=== PATIENT | female | born 1985 | race Caucasian/White ===

== ENCOUNTER 2016-10-12 19:46 | Emergency (ER) | payer SELFPAY ==
--- NOTE | 2016-10-12 20:17 | NUR ---
PATIENT LEFT WITHOUT BEING SEEN BY DR. IRELAND . NO FURTHER CARE PROVIDED FOR PATIENT.
== END 2016-10-12 20:17 | disposition left against medical advice (07) ==
LOC: MED 19:46
DX: M79.606 Pain in leg, unspecified (principal); Z53.21 Procedure and treatment not carried out due to patient leaving prior to being seen by health care provider

== ENCOUNTER 2016-11-05 13:25 | Inpatient (IN) | payer MEDICAID ==
[~2016-11-05] VITALS: Ht 160 cm; Wt 59.0 kg
--- NOTE | 2016-11-05 13:25 | NUR ---
Patient was BIBA at this time.
[2016-11-05 13:38] VITALS: BP 105/66
--- NOTE | 2016-11-05 14:30 | NUR ---
Patient to bed 06.
--- NOTE | 2016-11-05 14:30 | NUR ---
PT SWABBED FOR FLU. PT JEAN CLAUDE WELL. 20G IV TO LAC. BLOOD DRAWN FOR LAB.
[2016-11-05] MEDS ORDERED: NACL 0.9% 500 ML IV SCH (14:33)
--- NOTE | 2016-11-05 14:35 | NUR ---
31/ BIBA WITH MOM C/O GENERALIZED BODY ACHES AND SURESH SINCE WEDNESDAY. PT STATES SHE WAS RECENTLY TREATED FOR TOOTH ABSCESS W/AMOXICILLIN AND HAS SINCE DEVELOPED BODY ACHES AND PAINS. HX CVA W/LEFT ARM WEAKNESS 2010, KIDNEY STONES/SURGERY 2013. HX BLOOD CLOTS. PT ALSO C/O NECK PAIN RADIATING TO BACK, FEBRILE, AND CHILLS. PT PLACED ON MONITOR. EKG DONE AT BEDSIDE. FEVER PROTOCOL PER SEP. ER MADE AWARE.
[2016-11-05] MEDS ORDERED: ACETAMINOPHEN EXTRA STRENGTH 500 MG TAB ONE (14:56)
--- NOTE | 2016-11-05 14:56 | NUR ---
KEENA Peña evaluating patient at bedside.
[2016-11-05] MEDS ORDERED: ACETAMINOPHEN EXTRA STRENGTH 500 MG TAB PO ONE (15:10)
[2016-11-05] MEDS ORDERED: fentaNYL 0.05 MG/ML VIAL IVP ONE ×2 (15:35→15:55)
[2016-11-05] MEDS ORDERED: ONDANSETRON 4 MG/2 ML VIAL IVP ONE (15:35)
--- NOTE | 2016-11-05 15:42 | NUR ---
PER LAB, LACTIC ACID 3.8. Made this known to Dr. Alonso.
[2016-11-05] MEDS ORDERED: VANCOMYCIN 1,000 MG in DEXTROSE 5% 250 ML IV ONE (15:45)
[2016-11-05] MEDS ORDERED: cefTRIAXone 2,000 MG in DEXTROSE 5% 100 ML IV ONE (15:45)
[2016-11-05] MEDS ORDERED: DEXAMETHASONE 10 MG/ML VIAL IVP ONE (15:45)
--- NOTE | 2016-11-05 15:45 | NUR ---
Patient to CT via rmission hospital.
--- NOTE | 2016-11-05 15:52 | NUR ---
Patient back from CT via wheelchair per tech.
--- NOTE | 2016-11-05 15:55 | NUR ---
Dr. Alonso at bedside.
[2016-11-05] MEDS ORDERED: VANCOMYCIN 1,000 MG VIAL ONE (15:56)
[2016-11-05] MEDS ORDERED: cefTRIAXone 2,000 MG VIAL ONE (15:56)
--- NOTE | 2016-11-05 16:25 | NUR ---
DR. MORELOS FINISHED WITH LP AT BEDSIDE.
--- NOTE | 2016-11-05 16:40 | NUR ---
CALLED TO GIVE REPORT TO LORRAINE. STS WILL CALL BACK. WILL F/U IN 10MINS.
[2016-11-05] MEDS ORDERED: NACL 0.9% 1,000 ML IV SCH (16:46)
[2016-11-05] MEDS ORDERED: HYDROcodone/APAP 5/325 MG 1 TAB TAB PO PRN (16:50)
[2016-11-05] MEDS ORDERED: ACETAMINOPHEN 325 MG TAB PO PRN (16:50)
[2016-11-05] MEDS ORDERED: ONDANSETRON 4 MG/2 ML VIAL IVP PRN (16:50)
[2016-11-05 17:45] VITALS: BP 100/54
--- NOTE | 2016-11-05 17:45 | NUR ---
PATIENT ARRIVED FROM ER VIA GURNEY WITH DX OF POSSIBLE MENINGITIS. PATIENT AWAKE,ALERT AND ORIENTED. PATIENT REPORTS OF GENERALIZED PAIN BUT WAS MEDICATED PRIOR TO BEING TRANSFERRED. IV LINE NOTED TO THE LEFT AC WITH IVF INFUSING WELL. PATIENT PLACED ON TELE MONITORING. BED LOWERED WITH CALL LIGHT WITHIN REACH. WILL CONTINUE TO MONITOR
--- NOTE | 2016-11-05 19:20 | NUR ---
RECEIVED REPORT FROM LORETTA RAMIREZ/SARAH AT BEDSIDE. INITIAL ASSESSMENT COMPETED. PT AAOX4. PT HAS CCDS ON. PT HAS IV TO LEFT AC G 20; ASYMPTOMATIC, PATENT AND INTACT. ORIENTED PT TO ROOM AND SURROUNDINGS AND USE OF CALL LIGHT. EXPLAINED PLAN OF CARE TO PT AND SHE VERBALIZES UNDERSTANDING. CALL LIGHT WITHIN REACH.
--- NOTE | 2016-11-05 19:20 | NUR ---
PT REPORT GIVEN AT BEDSIDE TO NIGHT NURSE. PT ENDORSED IN STABLE CONDITION.
[2016-11-05 20:00] VITALS: BP 102/68
[2016-11-05] MEDS: MORPHINE SULFATE 2 MG/ML SYR IVP PRN (20:32)
--- NOTE | 2016-11-05 20:39 | NUR ---
PT MEDICATED FOR GENERALIZED PAIN 03/11. VS STABLE, WILL CONTINUE TO MONITOR PT.
--- NOTE | 2016-11-05 22:30 | NUR ---
PT'S POTASSIUM 3.2. DR. CHICAS WHO IS COVERING FOR DR. NATIVIDAD HERNANDEZ. WILL FOLLOW UP ON ORDERS.
[2016-11-05] MEDS ORDERED: POTASSIUM CHLORIDE 10 MEQ TABER PO SCH (23:30)
--- NOTE | 2016-11-05 23:43 | NUR ---
POTASSIUM GIVEN TO PT ORDERED. PT'S VS STABLE, PT RESTING IN BED. CALL LIGHT WITHIN REACH.
[2016-11-06] VITALS: BP 98/69
--- NOTE | 2016-11-06 01:05 | NUR ---
IV PUMP ALARMING, CHECKED IV PUMP, FLUSHED AND INFUSING FLUIDS WELL NOW. WILL CONTINUE TO MONITOR PT.
[2016-11-06 04:00] VITALS: BP 101/71
--- NOTE | 2016-11-06 04:15 | NUR ---
PT'S VS STABLE. NO SIGNS OF DISTRESS OR DISCOMFORT. WILL CONTINUE TO MONITOR PT.
--- NOTE | 2016-11-06 07:15 | NUR ---
ENDORSED PLAN OF CARE TO JOCELYN FOR CONTINUITY OF CARE. PT IN STABLE CONDITION.
--- NOTE | 2016-11-06 07:20 | NUR ---
RECEIVED REPORT FROM LORETTA MERCER. PT IS RESTING IN BED, A/OX4, IV IS ON THE LT AC, PATENT, INTACT, INFUSING WELL, SKIN IS INTACT, PT IS ON 2L O2 NC, NO S/S OF RESPIRATORY DISTRESS OR DISCOMFORT NOTED, FALL/SAFETY PRECAUTIONS ARE IN PLACE, DISCUSSED PLAN OF CARE WITH PT, PT VERBALIZED UNDERSTANDING, CALL LIGHT IS WITHIN REACH, WILL CONTINUE TO MONITOR.
[2016-11-06 08:00] VITALS: BP 94/50
[2016-11-06] MEDS: cefTRIAXone 2,000 MG in DEXTROSE 5% 100 ML IV SCH (08:15)
[2016-11-06] MEDS ORDERED: APAP/BUTAL/CAFF 325/50/40 MG 1 TAB PO PRN (08:50)
[2016-11-06] MEDS ORDERED: APAP/BUTAL/CAFF 325/50/40 MG 1 TAB PO SCH (09:00)
[2016-11-06] MEDS ORDERED: COUMADIN5 MG PO (09:00)
--- NOTE | 2016-11-06 09:00 | NUR ---
DUE MEDS GIVEN, PT SITTING IN BED, IS AT BEDSIDE.
--- NOTE | 2016-11-06 11:03 | NUR ---
REGISTERED DIETICIAN IS AT BEDSIDE.
[2016-11-06 12:00] VITALS: BP 97/61
[2016-11-06] MEDS: ACYCLOVIR 500 MG in NACL 0.9% 100 ML IV SCH ×2 (13:19→20:35)
--- NOTE | 2016-11-06 13:30 | NUR ---
PT SLEEPING IN BED AT THIS TIME.
--- NOTE | 2016-11-06 15:30 | NUR ---
PT RESTING IN BED WATCHING TV. CALL LIGHT WITHIN REACH WILL CONTINUE TO MONITOR.
[2016-11-06 16:00] VITALS: BP 90/49
[2016-11-06] MEDS ORDERED: BACLOFEN 10 MG TAB PO PRN (16:05)
[2016-11-06] MEDS ORDERED: SUMAtriptan 50 MG TAB PO SCH (16:15)
[2016-11-06] MEDS: NACL 0.9% 1,000 ML IV SCH (17:13)
[2016-11-06] MEDS: MORPHINE SULFATE 2 MG/ML SYR IVP PRN (17:38)
[2016-11-06] MEDS ORDERED: HYDROmorphone 1 MG/ML AMP IVP PRN (18:55)
--- NOTE | 2016-11-06 19:05 | NUR ---
RECEIVED REPORT FROM LORETTA BANKS AT BEDSIDE. INITIAL ASSESSMENT COMPETED. PT AAOX4. VS ARE STABLE, PT STABLE. PT HAS CCDS ON. PT HAS IV TO LEFT AC G 20; ASYMPTOMATIC, PATENT AND INTACT. ORIENTED PT TO ROOM AND SURROUNDINGS AND USE OF CALL LIGHT. EXPLAINED PLAN OF CARE TO PT AND SHE VERBALIZES UNDERSTANDING. CALL LIGHT WITHIN REACH. Addendum: 11/06/16 at 2346 by Aisha Mccarthy RN PT ON 02 2L NASAL CANULA; SATURATION 99%.
--- NOTE | 2016-11-06 19:15 | NUR ---
ENDORSED PT TO LORETTA MERCER. FOR CONTINUITY OF CARE, PT STABLE AT THIS TIME.
[2016-11-06 20:00] VITALS: BP 105/64
--- NOTE | 2016-11-06 20:31 | NUR ---
PT COMPLAINING OF BACK PAIN 03/11. PT REQUESTING DILAUDID. VS STABLE, WILL MEDICATE ORDERED.
--- NOTE | 2016-11-06 20:43 | NUR ---
PT MEDICATED FOR PAIN AND 2100 ZOVIRAX INFUSING NOW. CALL LIGHT WITHIN REACH.
--- NOTE | 2016-11-06 22:38 | NUR ---
PT REQUESTED ORANGE JUICE, WILL PROVIDE PT WITH JUICE. CALL LIGHT WITHIN REACH.
[2016-11-07] VITALS: BP 111/68
--- NOTE | 2016-11-07 00:52 | NUR ---
CHECKED ON PT. PT SLEEPING COMFORTABLY AT THIS TIME. CALL LIGHT WITHIN REACH.
--- NOTE | 2016-11-07 02:37 | NUR ---
PT REQUESTED TO HAVE IV REMOVED SO SHE COULD AMBULATE TO THE RESTROOM. PT BACK IN BED RESTING COMFORTABLY NOW. WILL CONTINUE TO MONITOR PT.
[2016-11-07] MEDS: NACL 0.9% 1,000 ML IV SCH (03:53)
[2016-11-07 04:00] VITALS: BP 113/69
[2016-11-07] MEDS: ACYCLOVIR 500 MG in NACL 0.9% 100 ML IV SCH (04:55)
--- NOTE | 2016-11-07 05:00 | NUR ---
PT COMPLAINING OF PAIN ON IV SITE. DISCONTINUED IV WITH TIP INTACT. NEW IV STARTED ON LEFT FOREARM G 20 INFUSING FLUIDS WELL. CALL LIGHT WITHIN REACH.
--- NOTE | 2016-11-07 07:00 | NUR ---
ENDORSED PLAN OF CARE TO JOCELYN FOR CONTINUITY OF CARE. PT IN STABLE CONDITION.
--- NOTE | 2016-11-07 07:05 | NUR ---
RECEIVED REPORT FROM LORETTA MERCER. PT IS ASLEEP BUT EASILY AWAKEN, A/OX4, AMBULATORY, IV IS ON THE LT WRIST, PATENT, INTACT, INFUSING WELL, SKIN IS INTACT, NO S/S OF RESPIRATORY DISTRESS OR DISCOMFORT NOTED, SAFETY/FALL/SEIZURE PRECAUTIONS ARE IN PLACE, DISCUSSED PLAN OF CARE WITH PT, PT VERBALIZED UNDERSTANDING, CALL LIGHT IS WITHIN REACH, WILL CONTINUE TO MONITOR.
--- NOTE | 2016-11-07 07:20 | NUR ---
PATIENT HAS BEEN SCREENED AND CATEGORIZED LOW NUTRITION RISK. PATIENT WILL BE SEEN WITHIN 7 DAYS OF ADMISSION. 11/11/16 FARTUN POPE MS, RDN
[2016-11-07 08:00] VITALS: BP 97/65
[2016-11-07] MEDS: cefTRIAXone 2,000 MG in DEXTROSE 5% 100 ML IV SCH (09:10)
--- NOTE | 2016-11-07 09:10 | NUR ---
DUE MEDICATION GIVEN, PT IS SLEEPING AT THIS TIME, CALL LIGHT WITHIN REACH, WILL CONTINUE TO MONITOR.
[2016-11-07] MEDS ORDERED: MOTRIN600 M1 PO (10:24)
[2016-11-07] MEDS ORDERED: BACLOFEN10 M1 PO (10:24)
--- NOTE | 2016-11-07 11:00 | NUR ---
PT SITTING IN BED, INFORMED THE PT THE DOCTOR HAD ORDERED HER DISCHARGE. PT VERBALIZED UNDERSTANDING AND AGREED TO DISCHARGE.
--- NOTE | 2016-11-07 13:10 | NUR ---
PT DISCHARGE INSTRUCTIONS/PACKET GIVEN, ID WRIST BAND REMOVED, IV CATHETER REMOVED, IV CATHETER TIP INTACT, PT STABLE UPON DISCHARGE.
== END 2016-11-07 13:10 | disposition home or self-care (01) | DRG 48 ==
LOC: MED 13:25 → MTU 16:41
PROVIDERS: ADMIT Family Medicine; ATTEND Family Medicine
PROC: 009U3ZX Drainage of Spinal Canal, Percutaneous Approach, Diagnostic (ICD-10-PCS; principal; 2016-11-05)
DX: G90.9 Disorder of the autonomic nervous system, unspecified (principal); E83.51 Hypocalcemia; G44.209 Tension-type headache, unspecified, not intractable; E02 Subclinical iodine-deficiency hypothyroidism; E86.0 Dehydration; H53.149 Visual discomfort, unspecified; E87.6 Hypokalemia; Z86.73 Personal history of transient ischemic attack (TIA), and cerebral infarction without residual deficits; Z90.49 Acquired absence of other specified parts of digestive tract; Z79.899 Other long term (current) drug therapy; Z56.0 Unemployment, unspecified; Z86.718 Personal history of other venous thrombosis and embolism

== ENCOUNTER 2017-05-10 15:58 | Emergency (ER) | payer MEDICAID ==
[~2017-05-10] VITALS: Ht 160 cm; Wt 73.1 kg
[~2017-05-10 15:58] MED LIST: BACL10TA4 PO; IBUP-2213 PO
[2017-05-10 16:41] VITALS: BP 110/71
--- NOTE | 2017-05-10 17:31 | NUR ---
PATIENT PRESENTS TO ED WITH C/O LEFT BREAST PAIN 8/10 RADIATING TO LEFT ARM X 2 DAYS WITH BLOODY DISCHARGE, HEAD ACHE N/V; HX OF BLOOD CLOTS NEGAR LOWER EXTREMITIES; STROKE 2010;RX OF COUMADIN 45MG BID .SKIN IS PINK/WARM/DRY; AAOX4 WITH EVEN AND STEADY GAIT; LUNGS CLEAR BL; HR EVEN AND REGULAR; PT DENIES ANY FEVER, CP, SOB, OR COUGH AT THIS TIME; PATIENT STATES PAIN OF 8/10 AT THIS TIME;PATIENT POSITIONED FOR COMFORT; HOB ELEVATED; BEDRAILS UP X2; BED DOWN.ALL MONITORS IN PLACEDL; ER MD MADE AWARE OF PT STATUS.
[2017-05-10 17:55] LABS: BASOPHILS # (AUTO) 0.2 K/uL (0.00-0.22); BASOPHILS % (AUTO) 1.8 % (0.0-2.0); EOSINOPHILS # (AUTO) 0.3 K/uL (0-0.4); EOSINOPHILS % (AUTO) 2.9 % (0.0-4.0); HEMOGLOBIN 13.6 g/dL (12.0-16.0); LYMPHOCYTES # (AUTO) 2.5 K/uL (2.5-16.5); LYMPHOCYTES % (AUTO) 25.1 % (20.5-51.1); MEAN CORPUSCULAR HEMOGLOBIN 29 pg (27-31); MEAN CORPUSCULAR HGB CONC 33 g/dL (33-37); MEAN CORPUSCULAR VOLUME 87 fL (80-94); MONOCYTES # (AUTO) 0.4 K/uL (0.8-1.0); MONOCYTES % (AUTO) 3.8 % (1.7-9.3); NEUTROPHILS # (AUTO) 6.6 K/uL (1.8-7.7); NEUTROPHILS % (AUTO) 66.4 % (42.2-75.2); PLATELET COUNT (AUTO) 234 K/uL (140-450)
[2017-05-10 18:11] LABS: ANION GAP 12.7 (8-16); CARBON DIOXIDE 27.1 mmol/L (21-32); CREATININE 0.8 mg/dL (0.6-1.3); POTASSIUM 3.8 mmol/L (3.5-5.1)
[2017-05-10 18:17] LABS: PROTHROMBIN TIME 9.9 secs (10.8-13.4); TOTAL BILIRUBIN 0.3 mg/dL (0.0-1.0)
[2017-05-10] MEDS ORDERED: KETOROLAC 60 MG/2 ML VIAL IM ONE (18:35)
--- NOTE | 2017-05-10 19:12 | NUR ---
GOT REPORT FROM LORETTA BRIZUELA. PT. RESTING IN BED, NO S/SX OF DISTRESS AT THIS TIME.
[2017-05-10 20:53] VITALS: BP 100/69
== END 2017-05-10 20:53 | disposition home or self-care (01) ==
LOC: MED 15:58
DX: N60.02 Solitary cyst of left breast (principal); Z86.73 Personal history of transient ischemic attack (TIA), and cerebral infarction without residual deficits
CPT/HCPCS: 36415; 76641; 80053; 85025; 85610; 85730; 96372; 99285; J1885; Q0092

== ENCOUNTER 2017-08-06 12:29 | Inpatient (IN) | payer MEDICAID ==
[~2017-08-06] VITALS: Ht 162.6 cm; Wt 68.5 kg
[2017-08-06 12:58] VITALS: BP 113/77
--- NOTE | 2017-08-06 13:20 | NUR ---
ekg done and reviewed by judith
--- NOTE | 2017-08-06 13:36 | NUR ---
pt placed in rm 10
--- NOTE | 2017-08-06 13:40 | NUR ---
C/O MIDSTERNAL PULSATING PAIN RADIATING LUE , UNPROVOKED, LASTING 2 MINS; FATIGUE WITH MILD EXCERTION X 3 DAYS PT ADDS SHE HAS ONE EPISODE OF EMESIS WITH BRIGHT RED BLOOD DENIES COUGH, FEVER, BODYACHES HX---CVA 2010, LLE DVT 2010, KIDNEY STONES RX---NONE
--- NOTE | 2017-08-06 13:41 | NUR ---
ER INFORMED THAT PT C/O SEVERE HEADACHE 05/11, SHE REPORTS SHE USUALLY TAKES IBUPROFEN, BUT HAS NOT HELPED. ALSO WITH INTERMITTENT PRESSURE CHEST PAIN. NO ORDERS RECEIVED AT THIS TIME.
[2017-08-06 13:44] LABS: BASOPHILS # (AUTO) 0.2 K/uL (0.00-0.22); BASOPHILS % (AUTO) 2.6 % (0.0-2.0); EOSINOPHILS # (AUTO) 0.2 K/uL (0-0.4); EOSINOPHILS % (AUTO) 1.8 % (0.0-4.0); HEMATOCRIT 38.7 % (36-48); HEMOGLOBIN 12.9 g/dL (12.0-16.0); LYMPHOCYTES # (AUTO) 2.5 K/uL (2.5-16.5); MEAN CORPUSCULAR HEMOGLOBIN 29 pg (27-31); MEAN CORPUSCULAR HGB CONC 33 g/dL (33-37); MEAN CORPUSCULAR VOLUME 88 fL (80-94); MONOCYTES # (AUTO) 0.5 K/uL (0.8-1.0); MONOCYTES % (AUTO) 5.6 % (1.7-9.3); NEUTROPHILS # (AUTO) 5.4 K/uL (1.8-7.7); PLATELET COUNT (AUTO) 270 K/uL (140-450); RED BLOOD CELL COUNT(AUTO) 4.42 MIL/uL (4.20-5.40); WHITE BLOOD COUNT (AUTO) 8.8 K/uL (4.8-10.8)
[2017-08-06] MEDS ORDERED: LORazepam 2 MG/ML VIAL IVP ONE (14:00)
[2017-08-06 14:09] LABS: PROTHROMBIN TIME 10.3 secs (10.8-13.4)
[2017-08-06 14:11] LABS: ANION GAP 14.8 (8-16); CARBON DIOXIDE 22.9 mmol/L (21-32); CREATININE 0.7 mg/dL (0.6-1.3); POTASSIUM 3.7 mmol/L (3.5-5.1)
[2017-08-06 14:17] LABS: ALBUMIN 3.9 g/dL (3.4-5.0); TOTAL BILIRUBIN 0.5 mg/dL (0.0-1.0)
[2017-08-06 14:44] LABS: APPEARANCE,URINE CLEAR (CLEAR); BILIRUBIN,URINE NEGATIVE (NEGATIVE); BLOOD, URINE 1+ (NEGATIVE); COLOR,URINE YELLOW (YELLOW); LEUKOCYTE ESTERASE ,URINE NEGATIVE (NEGATIVE); NITRITE, URINE NEGATIVE (NEGATIVE); PH,URINE 7.5 (5.0-9.0); UGLUCOSE NEGATIVE (NEGATIVE)
[2017-08-06 15:08] LABS: RBC,URINE 0-5 (RARE) /HPF (0-5); WBC,URINE 0-5 (RARE) /HPF (0-5)
[2017-08-06] MEDS ORDERED: METOCLOPRAMIDE 10 MG/2 ML INJ VIAL IVP ONE (15:40)
[2017-08-06] MEDS ORDERED: NACL 0.9% 1,000 ML IV ONE (15:40)
[2017-08-06] MEDS ORDERED: diphenhydrAMINE 50 MG/ML VIAL IVP ONE (15:40)
[2017-08-06 15:45] LABS: D-DIMER < 100 ng/ml (0-400)
[2017-08-06] MEDS ORDERED: ASPIRIN 325 MG TAB PO ONE (15:45)
[2017-08-06 15:50] LABS: BARBITURATE, URINE NEG. ng/ml (NEG <=200); BENZODIAZEPINE, URINE NEG. ng/mL (NEG <=200); CANNABINOID, URINE NEG. ng/mL (NEG <=50); COCAINE, URINE NEG. ng/mL (NEG <=300); OPIATE, URINE NEG. ng/mL (NEG <=2000); PHENCYCLIDINE SCREEN,URINE NEG. ng/mL (NEG <=25)
--- NOTE | 2017-08-06 17:32 | NUR ---
pt now wants aspirin medication, given as ordered.
--- NOTE | 2017-08-06 18:10 | NUR ---
Report given to Yuridia BURGOS, updated on status, labs and vitals. Pt stable for transfer. at bedside, belongings with pt. VSS.
--- NOTE | 2017-08-06 19:28 | NUR ---
PATIENT IS CURRENTLY AWAKE ALERT ORIENTED PREFERS TO SPEAK LIBYAN SHE IS RESTING IN BED ADMIT DX CVA PATIENT RESTING IN BED SKIN IS INTACT ONLY A SCAR NOTED TO HER RT SIDE OF ABDOMEN.PATIENT HAS IV LINE TO RT AC CURRENTLY PATENT. VITALS SIGNS TAKEN AND CURRENTLY STABLE PATIENT IS AFEBRILE. PATIENT STATES SHE HAD A CVA IN 2010 AND SHE TELLS ME THAT AT HOME SHE HAS FALLEN SEVERAL TIMES AND UNTIL NOW AT HOME SHE HAS SOME WEAKNESS WHEN WALKING AND DOING ADL'S AND GETS TIRED EASILY AND SHE GETS FRUSTRATED WELL. EDUCATED ON THE CALL LIGHT SYSTEM AND FALL PRECAUTIONS.PLAN OF CARE DISCUSSED WITH THE PATIENT AND SHE VERBALIZES UNDERSTANDING.CALL LIGHT WITHIN REACH.WILL CONTINUE TO MONITOR. Addendum: 08/06/17 at 2021 by Geraldine Stevens LVN PATIENT HAS NO ORDERS YET FOR ADMISSION MD LAURIE Smallwood HAS BEEN PAGED.PATIENT IS ALSO COMPLAINING OF HEADACHE AT THIS TIME WILL WAIT FOR HIS CALL BACK.
--- NOTE | 2017-08-06 19:35 | NUR ---
Patient will be admitted to care of [facility]. Admited to TELE. Will go to room 124A. Belongings list completed. STABLE DURING TRANSFER, IV SL AND PATENT
[2017-08-06 19:47] VITALS: BP 92/63
--- NOTE | 2017-08-06 20:22 | NUR ---
PATIENT PLACED ON FALL PRECAUTIONS EDUCATION GIVEN ON FALL PRECAUTIONS AND PATIENT VERBALIZES UNDERSTANDING TO USE THE CALL LIGHT WHEN SHE NEEDS HELP AND ALSO TO CALL FOR ASSISTANCE.
--- NOTE | 2017-08-06 20:39 | NUR ---
LAURIE A EXCHANGE WAS CALLED AND I SPOKE TO DARRYL FROM EXCHANGE AND HE WILL PAGE MD SULLIVAN SINCE HE HASN'T CALLED ME BACK YET.
[2017-08-06] MEDS ORDERED: ACETAMINOPHEN 325 MG TAB PO PRN ×3 (20:50→22:30)
--- NOTE | 2017-08-06 20:50 | NUR ---
I RECEIVED CALL BACK FROM Cl LONG AND I INFORMED HIM THAT PATIENT IS HAVING A HEADACHE AND PATIENT IS FEELING SOME SOB I ALSO ASKED MD IF HE WANTS THE PATIENT TO HAVE ANY IVF BUT Cl LONG ONLY GAVE ME SOME TELEPHONE ORDERS I READ BACK THE ORDERS TO HIM. THEN MD SULLIVAN SAID," DON'T WORRY ABOUT THE REST OF THE ORDERS I WILL PUT THE ORDERS IN LATER."
--- NOTE | 2017-08-06 20:57 | NUR ---
RESP THERAPIST EAGLE AWARE OF NEW OXYGEN ORDER FOR THE PATIENT.
--- NOTE | 2017-08-06 20:58 | NUR ---
MEDS NOT VERIFIED YET SO I CALLED [facility] AND IS SPOKE TO ANALI HE SAID HE IS WORKING AT THIS TIME ON THE ORDERS WILL FOLLOW UP.
--- NOTE | 2017-08-06 21:21 | NUR ---
I MEDICATED THE PATIENT WITH TYLENOL FOR HEADACHE PATIENT TOOK THE MEDS BUT PATIENT STATES,"I NEED IV PAIN MEDICATION THIS TYLENOL I USUALLY TAKE AT HOME FOR THE HEADACHE AND IT DOESN NOTHING FOR MY HEADACHE."I PAGED MD SULLIVAN EXCHANGE AND WILL INFORM MD SULLIVAN WHEN HE CALLS BACK.
[2017-08-06] MEDS ORDERED: IBUPROFEN 800 MG TAB PO PRN (21:45)
[2017-08-06] MEDS ORDERED: HYDROcodone/APAP 5/325 MG 1 TAB TAB PO PRN ×2 (21:50→22:30)
--- NOTE | 2017-08-06 22:19 | NUR ---
PATIENT SLEEPING AT THIS TIME. NO MORE COMPLAIN OF PAIN. SIGNIFICANT OTHER CAME TO SEE THE PATIENT AND WAS INFORMED OF VISITING HOURS AND ALSO THAT HE CANNOT SLEEP IN THE SAME BED WITH THE PATIENT AND HE CANNOT SPEND THE NIGHT WITH THE PATIENT EITHER HE WAS VERY UNDERSTANDING AND SAID HE WOULD ONLY STAY A FEW MINUTES AND THEN HE WILL LEAVE.
[2017-08-06] MEDS ORDERED: ONDANSETRON 4 MG/2 ML VIAL IVP PRN (22:30)
--- NOTE | 2017-08-06 22:32 | NUR ---
MD SULLIVAN IS AWARE THAT PATIENT IS CURRENTLY SLEEPING AND TYLENOL WAS EFFECTIVE, BUT I STILL INFORMED HIM THAT PATIENT WANTED MEDICATION EARLIER STRONGER THAN TYLENOL PATIENT STATES,"IV MEDICATION THAT CAN TAKE MY PAIN AWAY." MD SULLIVAN WILL PUT ORDERS IN.
[2017-08-06 23:24] LABS: CREATINE KINASE MB 0.3 ng/mL (0-3.6)
--- NOTE | 2017-08-07 00:34 | NUR ---
Patient's Plan of Care was discussed and reviewed with RESIDENTIAL REMODELING SUBCONTRACTOR: YONATAN AUSTIN.
--- NOTE | 2017-08-07 03:20 | NUR ---
PATIENT SLEEPING IN BED WILL CONTINUE TO MONITOR.CALL LIGHT WITHIN REACH.
[2017-08-07] MEDS: HYDROcodone/APAP 5/325 MG 1 TAB TAB PO PRN ×2 (04:18→09:21)
[2017-08-07 04:57] VITALS: BP 120/58
--- NOTE | 2017-08-07 05:18 | NUR ---
PATIENT SLEEPING AT THIS TIME WILL CONTINUE TO MONITOR.
[2017-08-07] MEDS: BACLOFEN 10 MG TAB PO PRN ×2 (06:25→16:55)
--- NOTE | 2017-08-07 06:25 | NUR ---
PATIENT COMPLAINS OF HEADACHE AGAIN AND I MEDICATED HER WITH BACLOFEN INDICATED PATIENT TOOK MEDICATION. WILL CONTINUE TO MONITOR.
--- NOTE | 2017-08-07 07:30 | NUR ---
RECEIVED REPORT FROM CATALYST MANUFACTURING OPERATOR RN, PT SLEEPING BUT EASILY AWAKING, NO S/S OF RESPIRATORY DISTRESS NOTED. IV SITE INTACT AND PATENT, PT ABLE TO MOVE ALL HER EXTREMITIES, CALL LIGHT IN REACH, POC EXPLAINED TO PT, PT VERBALIZED UNDERSTANDING, WILL CONTINUE TO MONITOR.
--- NOTE | 2017-08-07 07:31 | NUR ---
PATIENT STABLE REPORT ENDORSE TO LORETTA ARMSTRONG AT BEDSIDE.
[2017-08-07 08:00] VITALS: BP 102/66
--- NOTE | 2017-08-07 08:15 | NUR ---
BREAKFAST TRAY SERVED.
[2017-08-07 08:37] LABS: BASOPHILS # (AUTO) 0.2 K/uL (0.00-0.22); BASOPHILS % (AUTO) 3.1 % (0.0-2.0); EOSINOPHILS # (AUTO) 0.2 K/uL (0-0.4); EOSINOPHILS % (AUTO) 3.5 % (0.0-4.0); HEMATOCRIT 37.1 % (36-48); HEMOGLOBIN 12.4 g/dL (12.0-16.0); LYMPHOCYTES # (AUTO) 1.7 K/uL (2.5-16.5); LYMPHOCYTES % (AUTO) 26.7 % (20.5-51.1); MEAN CORPUSCULAR HEMOGLOBIN 29 pg (27-31); MEAN CORPUSCULAR HGB CONC 33 g/dL (33-37); MEAN CORPUSCULAR VOLUME 88 fL (80-94); MONOCYTES # (AUTO) 0.4 K/uL (0.8-1.0); MONOCYTES % (AUTO) 6.4 % (1.7-9.3); NEUTROPHILS % (AUTO) 60.3 % (42.2-75.2); PLATELET COUNT (AUTO) 218 K/uL (140-450); RED BLOOD CELL COUNT(AUTO) 4.24 MIL/uL (4.20-5.40); WHITE BLOOD COUNT (AUTO) 6.5 K/uL (4.8-10.8)
[2017-08-07 08:53] LABS: ALBUMIN 3.3 g/dL (3.4-5.0); ANION GAP 11.8 (8-16); CARBON DIOXIDE 24.8 mmol/L (21-32); CREATININE 0.7 mg/dL (0.6-1.3); PHOSPHORUS 3.7 mg/dL (2.5-4.9); POTASSIUM 3.6 mmol/L (3.5-5.1); TOTAL BILIRUBIN 0.3 mg/dL (0.0-1.0)
[2017-08-07 09:06] LABS: CREATINE KINASE MB 0.2 ng/mL (0-3.6)
--- NOTE | 2017-08-07 09:42 | NUR ---
PATIENT HAS BEEN SCREENED AND CATEGORIZED MODERATE NUTRITION RISK. PATIENT WILL BE SEEN WITHIN 3-5 DAYS OF ADMISSION. 08/09/17-08/11/[address]
--- NOTE | 2017-08-07 11:00 | NUR ---
PT C/O CHEST PAIN AND HEADACHE, NUMBNESS TO LEFT ARM. CALLED DR.PALIWAL Smallwood, PER DR. SULLIVAN, GIVE PT MORPHINE 1 MG IVP Q6H PRE FOR SEVERE PAIN, EKG AND TROPONIN CHECK, WILL CARRY OUT.
[2017-08-07] MEDS: MORPHINE SULFATE 2 MG/ML SYR IVP PRN ×2 (11:43→23:39)
[2017-08-07 12:00] VITALS: BP 122/65
--- NOTE | 2017-08-07 13:17 | NUR ---
CALLED A, PT C/O NUMBNESS TO LEFT EXTREMITIES, AND PT UNABLE TO MOVE HER LEFT ARM, CALLED , PER DR. SULLIVAN, CALL DR. FAUSTIN.
--- NOTE | 2017-08-07 13:30 | NUR ---
PT STATED SHE IS ABLE TO MOVE HER ARM AT THIS TIME. FAMILY AT BEDSIDE.
--- NOTE | 2017-08-07 14:01 | NUR ---
CALLED BACK, NOTIFIED HIM PT ABLE TO MOVE HER ARM AT THIS TIME. PT STATED SHE FEELS OK AT THIS TIME.
[2017-08-07 16:00] VITALS: BP 118/70
--- NOTE | 2017-08-07 17:15 | NUR ---
REPORT GIVEN TO MANAGER SOLUTION RN. PT AWAKE, ALERT. NO S/S OF RESPIRATORY DISTRESS NOTED. Addendum: 08/07/17 at 1936 by Twila Wilcox RN REPORT TIME 1914
--- NOTE | 2017-08-07 17:30 | NUR ---
DINNER TRAY SERVED.
[2017-08-07 18:01] LABS: CHOL/HDL RATIO 3.8 (1-4.5)
--- NOTE | 2017-08-07 18:20 | NUR ---
ASSISTED PT WALKING WITH WALKER TO BATHROOM.
--- NOTE | 2017-08-07 19:35 | NUR ---
PATIENT IS CURRENTLY RESTING IN BED WITH FAMILY AT BEDSIDE SMILING. PATIENT STATES SHE HAS A MILD HEADACHE BUT PATIENT STATES,"I HAVE BEEN HAVING A HEADACHE THE WHOLE DAY BUT ITS LESS AT THIS TIME." PATIENT CONTINUES TO BE ON OXYGEN DENIES ANY SOB AT THIS TIME BUT PATIENT STATES,"I SOMETIMES GET SHORTNESS OF BREATH BUT IM FINE RIGHT NOW." PATIENT COMPLAINS OF HAVING LT SIDED WEAKNESS THROUGHOUT THE DAY. PATIENT STATES,"I WAS SEEN BY THE NEUOLOGIST ALREADY AND HE TOLD ME HE WILL ORDER SOME TESTS." I CHECKED HER VITALS SIGNS AND THEY ARE CURRENTLY STABLE AND PATIENT IS AFEBRILE.CALL LIGHT WITHIN REACH.
[2017-08-07 20:00] VITALS: BP 104/60
--- NOTE | 2017-08-07 20:30 | NUR ---
DIRECTOR CAREER SERVICES RITESH INFORMED THAT I NEED SCD'S FOR MY PATIENT.
[2017-08-07] MEDS: TOPIRAMATE 25 MG TAB PO SCH (20:35)
--- NOTE | 2017-08-07 20:48 | NUR ---
PATIENT RESTING IN BED MEDICATION ADMINISTERED.PLAN OF CARE DISCUSSED WITH THE PATIENT. PATIENT VERBALIZES UNDERSTANDING.CALL LIGHT WITHIN REACH.
--- NOTE | 2017-08-07 22:55 | NUR ---
I INFORMED AND REMINDED MORNING NANNY RITESH THAT I NEED THE SCD'S FOR MY PATIENT. HE SAID HE WILL BRING IT.
--- NOTE | 2017-08-07 23:00 | NUR ---
SURVEY DATA TECHNICIAN BROUGHT SCD'S AND I EXPLAINED TO THE PATIENT THE REASON AND PURPOSE OF SCD'S I ASKED THE PATIENT IF SHE IS HAVING ANY LEG PAIN OF FEELS ANY PAIN IN EITHER CALF OR LEG PATIENT DENIES ANY LEG PAIN. PATIENT STATES,"IM ONLY HAVING LT SIDED WEAKNESS BUT I HAVE BEEN HAVING THAT PROBLEM EVEN AT HOME." VERBALIZES UNDERSTANDING ON THE PURPOSE OF THE SCD'S AND THEY WERE PLACED TO PATIENT'S BOTH LOWER EXTREMITIES. WILL CONTINUE TO MONITOR.
--- NOTE | 2017-08-07 23:30 | NUR ---
PATIENT STATES," IM HAVING A REALLY BAD HEADACHE BUT I DON'T WANT NORCO AND TYLENOL DOES NOTHING FOR MY HEADACHE I WANT MORPHINE THAT WORKS FOR MY HEADACHE AND TAKES IT AWAY COMPLETELY AND THEN I CAN REST." RN NOTIFIED SHE WILL MEDICATE MY PATIENT WITH MORPHINE ORDERED.WILL CONTINUE TO MONITOR.CALL LIGHT WITHIN REACH.
--- NOTE | 2017-08-08 00:04 | NUR ---
PATIENT SLEEPING WELL IN BED AT THIS TIME HAS SCD'S TO BOTH LOWER EXTREMITY FOR DVT PROPHALAXIS. WILL CONTINUE TO MONITOR.
--- NOTE | 2017-08-08 01:51 | NUR ---
PATIENT IS SLEEPING WELL IN BED AT THIS TIME WILL CONTINUE TO MONITOR.
--- NOTE | 2017-08-08 03:05 | NUR ---
PATIENT IS CURRENTLY RESTING IN BED SLEEPING WILL CONTINUE TO MONITOR.
[2017-08-08 04:25] VITALS: BP 93/62
--- NOTE | 2017-08-08 04:25 | NUR ---
ROUNDS MADE PATIENT CURRENTLY SMILING ON HER PHONE SHE PUTS HER PHONE DOWN AND COMPLAINS OF PAIN TO HEAD PATIENT STATES,"IT JUST STARTED HAVING PAIN SUDDENLY RIGHT NOW." I CHECKED HER VITAL SIGNS AND HER B/P WAS 80/34 HR 62 TO THEN I RECHECKED THE B/P AND IT WAS 93/62 I EXPLAINED TO THE PATIENT THAT B/P IS LOW AT THIS TIME AND OFFERED TO GIVE HER SOME TYLENOL FOR THE HEADACHE.PATIENT REFUSED PATIENT STATES,"NO, I WILL WAIT I WANT IV MORPHINE THAT IS THE ONLY MEDICATION THE TAKES THE PAIN AWAY." I OFFERED BACLOFEN FOR THE PATIENT AND PATIENT REFUSED PATIENT STATES,"NO I DON'T WANT BACLOFEN EITHER IT DOESN' T DO ANYTHING FOR MY PAIN." I TOLD THE PATIENT THAT I WILL RECHECK HER BLOOD PRESSURE LATER AND IF ITS BETTER THEN WILL SEE IF SHE CAN GET THE MORPHINE. PATIENT AGREES AND VERBALIZES UNDERSTANDING.
--- NOTE | 2017-08-08 05:59 | NUR ---
I WENT BACK TO CHECK ON THE PATIENT AND TO CHECK HER VITALS SIGNSAND CHECK ON HER PAIN BUT PATIENT IS CURRENTLY ASLEEP AT THIS TIME.WILL LET PATIENT REST AND SLEEP FOR NOW.
[2017-08-08 07:16] LABS: BASOPHILS # (AUTO) 0.3 K/uL (0.00-0.22); BASOPHILS % (AUTO) 3.7 % (0.0-2.0); EOSINOPHILS # (AUTO) 0.3 K/uL (0-0.4); EOSINOPHILS % (AUTO) 3.7 % (0.0-4.0); HEMOGLOBIN 12.8 g/dL (12.0-16.0); LYMPHOCYTES % (AUTO) 26.3 % (20.5-51.1); MEAN CORPUSCULAR HEMOGLOBIN 29 pg (27-31); MEAN CORPUSCULAR HGB CONC 34 g/dL (33-37); MEAN CORPUSCULAR VOLUME 87 fL (80-94); MONOCYTES # (AUTO) 0.6 K/uL (0.8-1.0); MONOCYTES % (AUTO) 7.6 % (1.7-9.3); NEUTROPHILS # (AUTO) 4.6 K/uL (1.8-7.7); NEUTROPHILS % (AUTO) 58.7 % (42.2-75.2); PLATELET COUNT (AUTO) 230 K/uL (140-450); RED BLOOD CELL COUNT(AUTO) 4.38 MIL/uL (4.20-5.40); RED CELL DISTRIBUTION WIDTH 12.8 % (11.6-13.7); WHITE BLOOD COUNT (AUTO) 7.8 K/uL (4.8-10.8)
--- NOTE | 2017-08-08 07:23 | NUR ---
PATIENT SLEEPING NO PAIN OR DISCOMFORT REPORT ENDORSED TO LORETTA MAR HE WILL RESUME CARE OF THE PATIENT.
--- NOTE | 2017-08-08 07:24 | NUR ---
PATIENT LYING DOWN IN BED SLEEPING, AROUSABLE BY VOICE. NO DISTRESS NOTED. REPORT HAVING PAIN, WILL MEDICATE PER ORDERS. RESPIRATIONS EVEN, UNLABORED, ON O2 0.5L/MIN WITH 100% SAT. AAOX4, CALM, COOPERATIVE, SKIN COLOR APPROPRIATE TO ETHNICITY, WARM TO TOUCH. SKIN IS INTACT. LUNGS CTA ON ALL LOBES. ABDOMEN SOFT, NON-DISTENDED. IV SITE INTACT, PATENT, ON SALINE LOCK. REVIEWED PLAN OF CARE WITH PATIENT. PATIENT VERBALIZED UNDERSTANDING. SAFETY MEASURES IN PLACE, CALL LIGHT WITHIN REACH. WILL CONTINUE TO MONITOR.
[2017-08-08 08:00] VITALS: BP 91/55
[2017-08-08 08:02] LABS: ANION GAP 10.5 (8-16); CARBON DIOXIDE 26.2 mmol/L (21-32); CREATININE 0.7 mg/dL (0.6-1.3); POTASSIUM 3.7 mmol/L (3.5-5.1)
[2017-08-08] MEDS: TOPIRAMATE 25 MG TAB PO SCH ×2 (08:21→21:33)
--- NOTE | 2017-08-08 08:26 | NUR ---
PATIENT REPORTS HAVING A HEADACHE. MEDICATED WITH SCHEDULED MEDICATION. SAFETY MEASURES IN PLACE, CALL LIGHT WITHIN REACH. WILL CONTINUE TO MONITOR.
[2017-08-08 09:35] VITALS: BP 110/68
[2017-08-08] MEDS: MORPHINE SULFATE 2 MG/ML SYR IVP PRN ×3 (09:42→21:33)
--- NOTE | 2017-08-08 09:45 | NUR ---
PATIENT COMPLAINTS OF CHEST PAIN. V/S RECHECKED, BLOOD PRESSURE WAS OK TO GIVE MORPHINE. MORPHINE GIVEN. SAFETY MEASURES IN PLACE, CALL LIGHT WITHIN REACH. WILL CONTINUE TO MONITOR.
--- NOTE | 2017-08-08 11:00 | NUR ---
PATIENT WALKING WITH WALKER AROUND UNIT HALLWAYS WITH FAMILY MEMBER AT BEDSIDE. WILL CONTINUE TO MONITOR.
--- NOTE | 2017-08-08 13:00 | NUR ---
PATIENT WALKING AROUND USING WALKER WITH FAMILY IN [facility] [place]. WILL CONTINUE TO MONITOR.
--- NOTE | 2017-08-08 15:40 | NUR ---
COMPLAINTS OF 8/10 PAIN. MEDICATED WITH MORPHINE. SAFETY MEASURES IN PLACE, CALL LIGHT WITHIN REACH. WILL CONTINUE TO MONITOR.
--- NOTE | 2017-08-08 17:45 | NUR ---
PATIENT SITTING IN BED WITH DINNER TRAY IN FRONT. FRIENDS AT BEDSIDE. DENIES ANY PAIN. CONDITION UNCHANGED. WILL CONTINUE TO MONITOR.
--- NOTE | 2017-08-08 17:47 | NUR ---
PATIENT SITTING IN BED TALKING WITH FRIENDS AT BEDSIDE. NO DISTRESS NOTED. DENIES ANY PAIN. SAFETY MEASURES IN PLACE. WILL CONTINUE TO MONITOR.
--- NOTE | 2017-08-08 19:28 | NUR ---
GAVE REPORT TO WOOL HAT FORMING MACHINE TENDER NURSE FOR CONTINUITY OF CARE. PATIENT IN STABLE CONDITION.
--- NOTE | 2017-08-08 19:30 | NUR ---
RECEIVED PT IN STABLE CONDITION FROM AM NURSE. AWAKE, ALERT AND ORIENTED X4. BUT HAD HX;CVA, WITH LT SIDED WEAKNESS. MED SURG PT. CAN AMBULATE WITH WALKER ,STANDBY ASSIST . NO C/O ANY DISCOMFORT NOR PAIN AT THIS TIME. PLAN OF CARE DISCUSSED . VERBALIZED UNDERSTANDING. CALL LIGHT PLACED WITHIN EASY REACH. BED ON LOW POSITION. WILL CONTINUE TO MONITOR.
--- NOTE | 2017-08-08 20:00 | NUR ---
PT BILATERAL LOWER LEG WITH SEQUENTIAL COMPRESSION DEVICE MACHINE ON.
[2017-08-08 21:25] VITALS: BP 104/58
--- NOTE | 2017-08-08 22:00 | NUR ---
ASSISTED TO BATHROOM WITH STANDBY ASSISTANCE.
--- NOTE | 2017-08-08 22:45 | NUR ---
FAMILY AT BEDSIDE . CAME TO VISIT.
[2017-08-09 00:44] VITALS: BP 120/56
--- NOTE | 2017-08-09 01:00 | NUR ---
MADE ROUNDS . PT IS ASLEEP. NO S/S OF ANY DISCOMFORT NOR PAIN NOTED.
--- NOTE | 2017-08-09 04:16 | NUR ---
MADE ROUNDS. ASLEEP ,NO S/S OF ANY DISCOMFORT NOR PAIN NOTED.
--- NOTE | 2017-08-09 06:30 | NUR ---
PT STILL ASLEEP. NO S/S OF ANY DISCOMFORT NOTED.
[2017-08-09 06:31] LABS: BASOPHILS # (AUTO) 0.1 K/uL (0.00-0.22); BASOPHILS % (AUTO) 1.6 % (0.0-2.0); EOSINOPHILS # (AUTO) 0.3 K/uL (0-0.4); EOSINOPHILS % (AUTO) 2.9 % (0.0-4.0); HEMATOCRIT 37.4 % (36-48); HEMOGLOBIN 12.7 g/dL (12.0-16.0); LYMPHOCYTES # (AUTO) 2.3 K/uL (2.5-16.5); LYMPHOCYTES % (AUTO) 26.6 % (20.5-51.1); MEAN CORPUSCULAR HEMOGLOBIN 30 pg (27-31); MEAN CORPUSCULAR HGB CONC 34 g/dL (33-37); MEAN CORPUSCULAR VOLUME 87 fL (80-94); MONOCYTES # (AUTO) 0.5 K/uL (0.8-1.0); MONOCYTES % (AUTO) 5.7 % (1.7-9.3); NEUTROPHILS # (AUTO) 5.5 K/uL (1.8-7.7); NEUTROPHILS % (AUTO) 63.2 % (42.2-75.2); PLATELET COUNT (AUTO) 228 K/uL (140-450); RED BLOOD CELL COUNT(AUTO) 4.28 MIL/uL (4.20-5.40); RED CELL DISTRIBUTION WIDTH 12.9 % (11.6-13.7); WHITE BLOOD COUNT (AUTO) 8.7 K/uL (4.8-10.8)
[2017-08-09 06:58] LABS: ANION GAP 14.8 (8-16); CARBON DIOXIDE 22.9 mmol/L (21-32); CREATININE 0.8 mg/dL (0.6-1.3); POTASSIUM 3.7 mmol/L (3.5-5.1)
--- NOTE | 2017-08-09 07:14 | NUR ---
ENDORSED PT IN STABLE CONDITION TO MA NURSE.
--- NOTE | 2017-08-09 07:15 | NUR ---
RECEIVED REPORT FROM PHOTOVOLTAIC SOLAR CELL DESIGNER NURSE, PT IS SLEEPING IN BED BUT EASILY AWAKEN, PT IS A/OX4, AMBULATES WITH WALKER, PT HAS IV ON THE LEFT FA, PATENT, INTACT, FLUSHING WELL, PT IS ON O2 O.5L NC NO S/S OF RESPIRATORY DISTRESS OR DISCOMFORT NOTED, SAFETY/FALL PRECAUTIONS ARE IN PLACE, CALL LIGHT IS WITHIN REACH, WILL CONTINUE TO MONITOR.
[2017-08-09 08:00] VITALS: BP 97/50
[2017-08-09] MEDS: BACLOFEN 10 MG TAB PO PRN (09:55)
[2017-08-09] MEDS: TOPIRAMATE 25 MG TAB PO SCH (09:55)
[2017-08-09] MEDS: MORPHINE SULFATE 2 MG/ML SYR IVP PRN (10:53)
--- NOTE | 2017-08-09 13:54 | NUR ---
PT AMBULATING WITH THE ASSISTANCE OF A WALKER, PT'S FAMILY MEMBER IS WALKING WITH PT.
[2017-08-09] MEDS ORDERED: TOP25 PO (13:59)
--- NOTE | 2017-08-09 16:20 | NUR ---
SPOKE TO BUBBA IN S.S I ASKED HIM IF IT WAS OKAY TO DISCHARGE THE PATIENT HOME. HE SAID IT WAS FINE TO DC PATIENT HOME AND HE WOULD GO AHEAD AND SET UP FOR PHYSICAL THERAPY AT HOME.
--- NOTE | 2017-08-09 16:30 | NUR ---
DISCHARGE INSTRUCTIONS GIVEN, ID WRIST BAND REMOVED, IV REMOVED, CATHETER TIP INTACT.
== END 2017-08-09 17:05 | disposition home health service (06) | DRG 54 ==
LOC: MED 12:29 → MTU 17:23
PROVIDERS: ADMIT Preventive Medicine Preventive Medicine/Occupational Environmental Medicine; ATTEND Preventive Medicine Preventive Medicine/Occupational Environmental Medicine
DX: G43.909 Migraine, unspecified, not intractable, without status migrainosus (principal); F45.9 Somatoform disorder, unspecified; R07.89 Other chest pain; Z90.49 Acquired absence of other specified parts of digestive tract; Z87.442 Personal history of urinary calculi; Z86.718 Personal history of other venous thrombosis and embolism; Z86.73 Personal history of transient ischemic attack (TIA), and cerebral infarction without residual deficits
CPT/HCPCS: 36415; 70450; 71046; 80048; 80053; 80305; 81001; 81025; 82550; 82553; 82948; 83036; 83735; 84100; 84443; 84484; 85025; 85220; 85379; 85610; 85613; 85730; 87081; 87804; 93005; 96361; 96374; 96375; 97110; 97530; 99285; J1200; J2060; J2270; J2765; J7030

== ENCOUNTER 2017-08-15 14:11 | Emergency (ER) | payer MEDICAID ==
[~2017-08-15] VITALS: Ht 157.5 cm; Wt 68.0 kg
[~2017-08-15 14:11] MED LIST changes: +TOP25 PO
[2017-08-15 14:13] VITALS: BP 92/58
[2017-08-15] MEDS ORDERED: ASPIRIN 81 MG TAB.CHEW PO ONE (14:20)
[2017-08-15 17:04] LABS: BASOPHILS # (AUTO) 0.2 K/uL (0.00-0.22); BASOPHILS % (AUTO) 1.7 % (0.0-2.0); EOSINOPHILS # (AUTO) 0.2 K/uL (0-0.4); EOSINOPHILS % (AUTO) 1.7 % (0.0-4.0); HEMATOCRIT 43.3 % (36-48); HEMOGLOBIN 14.4 g/dL (12.0-16.0); LYMPHOCYTES # (AUTO) 1.7 K/uL (2.5-16.5); LYMPHOCYTES % (AUTO) 17.3 % (20.5-51.1); MEAN CORPUSCULAR HEMOGLOBIN 29 pg (27-31); MEAN CORPUSCULAR HGB CONC 33 g/dL (33-37); MEAN CORPUSCULAR VOLUME 87 fL (80-94); MONOCYTES # (AUTO) 0.4 K/uL (0.8-1.0); MONOCYTES % (AUTO) 4.2 % (1.7-9.3); NEUTROPHILS # (AUTO) 7.3 K/uL (1.8-7.7); NEUTROPHILS % (AUTO) 75.1 % (42.2-75.2); PLATELET COUNT (AUTO) 246 K/uL (140-450); RED CELL DISTRIBUTION WIDTH 12.9 % (11.6-13.7); WHITE BLOOD COUNT (AUTO) 9.8 K/uL (4.8-10.8)
[2017-08-15] MEDS ORDERED: ACETAMINOPHEN EXTRA STRENGTH 500 MG TAB PO ONE (17:10)
[2017-08-15 17:19] LABS: ANION GAP 14.1 (8-16); CARBON DIOXIDE 26.8 mmol/L (21-32); CREATININE 0.8 mg/dL (0.6-1.3); POTASSIUM 3.9 mmol/L (3.5-5.1)
[2017-08-15 17:25] LABS: TOTAL BILIRUBIN 0.5 mg/dL (0.0-1.0)
[2017-08-15 17:35] LABS: ALBUMIN 3.9 g/dL (3.4-5.0)
[2017-08-15 18:04] VITALS: BP 94/54
== END 2017-08-15 18:04 | disposition home or self-care (01) ==
LOC: MED 14:11
DX: F41.9 Anxiety disorder, unspecified (principal); R07.89 Other chest pain; Z86.73 Personal history of transient ischemic attack (TIA), and cerebral infarction without residual deficits; Z90.49 Acquired absence of other specified parts of digestive tract; Z79.899 Other long term (current) drug therapy
CPT/HCPCS: 36415; 70450; 71045; 80053; 83880; 84484; 85025; 85379; 99285; Q0092